=== PATIENT | female | born 1945 | race Caucasian/White ===

== ENCOUNTER 2019-02-20 11:15 | Inpatient (IN) ==
[2019-02-20] MEDS ORDERED: NORCO PO PRN (18:22)
[2019-02-20] MEDS ORDERED: CYCLOBENZAPRINE PO PRN (18:22)
[2019-02-20] MEDS ORDERED: Mag Hydrox/Al Hydrox/Simeth 30 ML UDC PO PRN (18:29)
[2019-02-20] MEDS ORDERED: Ondansetron ODT 4 MG TAB.RAPDIS SL PRN (18:29)
[2019-02-20] MEDS: Sennosides/Docusate Sodium TABLET PO SCH (22:10)
[2019-02-20] MEDS: (Cyclosporine [Restasis] 1 EACH) OP SCH (22:10)
[2019-02-20] MEDS: FluocinoNIDE 0.05% CRM 15 GM TUBE TP SCH (22:10)
[2019-02-20] MEDS: Melatonin 3 MG TABLET PO PRN (22:11)
[2019-02-20] MEDS: Acetaminophen 325 MG TABLET PO PRN (22:11)
[2019-02-21] MEDS: *HR* HYDROcodone/Acet 5/325 mg TABLET PO PRN ×3 (00:15→22:04)
[2019-02-21] MEDS: tiZANidine 4 MG TABLET PO PRN ×3 (00:15→22:04)
[2019-02-21 06:59] LABS: Basophils % 0.4 %; Eosinophils # 0.5 K/mcL (0.0-0.6); Hematocrit 30.9 % (35.3-44.9); Hemoglobin 10.8 g/dL (11.5-15.4); Immature Granulocytes % 0.3 % (0-4); Lymphocytes # 1.8 K/mcL (0.6-4.6); Mean Corpuscular Volume 91.4 fL (83.0-100.0); Mean Platelet Volume 9.1 fL (9.4-12.4); Monocytes # 0.7 K/mcL (0.0-1.3); Monocytes % 9.6 %; Neutrophils # 3.9 K/mcL (1.6-8.9); Platelet Count 312 K/mcL (140-400); Red Blood Count 3.38 M/mcL (3.82-4.97); Red Cell Distribution Width 12.6 % (11.5-14.5); Segmented Neutrophils % 56.7 %
[2019-02-21 07:12] LABS: Alanine Aminotransferase 10 Units/L (7-52); Albumin 3.4 g/dL (3.5-5.7); Albumin/Globulin Ratio 1.2 (1.1-2.2); Alkaline Phosphatase 41 Units/L (34-104); Aspartate Amino Transferase 10 Units/L (13-39); BUN/Creatinine Ratio 17 (6-26); Bilirubin,Total 0.5 mg/dL (0.3-1.0); Blood Urea Nitrogen 8 mg/dL (8-23); Calcium 8.6 mg/dL (8.6-10.3); Carbon Dioxide 31 mEq/L (23-29); Chloride 95 mEq/L (98-107); Globulin 2.9 g/dL (2.4-3.5); Glucose 129 mg/dL (70-105); Magnesium 1.8 mg/dL (1.6-2.6); Osmolality,Calculated 272 (280-300); Potassium 3.5 mEq/L (3.5-5.1); Sodium 131 mEq/L (136-145); Total Protein 6.3 g/dL (6.4-8.9); eGFR For African Americans > 60 (> 60); eGFR For Non-African Americans > 60 (> 60)
[2019-02-21] MEDS: Sennosides/Docusate Sodium TABLET PO SCH ×2 (08:25→22:01)
[2019-02-21] MEDS: Aspirin 81 MG TAB.CHEW PO SCH (08:25)
[2019-02-21] MEDS: FluocinoNIDE 0.05% CRM 15 GM TUBE TP SCH ×3 (08:26→22:00)
[2019-02-21] MEDS: (Cyclosporine [Restasis] 1 EACH) OP SCH ×2 (08:26→22:01)
[2019-02-21] MEDS: Fluticasone Propionate Nasal 50 MCG/SPRAY BOTTLE NS SCH ×2 (08:33→09:24)
[2019-02-21] MEDS ORDERED: Fluticasone Propionate Nasal 50 MCG/SPRAY BOTTLE NS SCH (09:00)
--- NOTE | 2019-02-21 09:54 | Internal Med History&Physical ---
Date of Encounter: 02/21/19 Time of Encounter: 09:47 Assessment and Plan (1) Anterior communicating artery aneurysm Current visit: No Status: Acute With the stroke. She has diplopia and mild left weakness. She is apparently doing better and is to be treated with a statin and daily aspirin. (2) Proximal humerus fracture Current visit: No Status: Acute Apparently, to be treated only with sling. Need modified OT/PT. Qualifiers: Encounter type: initial encounter Fracture type: closed Fracture morphology: unspecified fracture morphology Laterality: left Qualified Code(s): S42.202A - Unspecified fracture of upper end of left humerus, initial encounter for closed fracture (3) Vertigo Current visit: No Status: Acute Apparently chronic and treated with meclizine but worsened by stroke. (4) Hypertension Current visit: Yes Status: Acute Moderate elevation. Qualifiers: Hypertension type: essential hypertension Qualified Code(s): I10 - Essential (primary) hypertension (5) GERD (gastroesophageal reflux disease) Current visit: Yes Status: Acute Asymptomatic on current regimen. Qualifiers: Esophagitis presence: without esophagitis Qualified Code(s): K21.9 - Gastro-esophageal reflux disease without esophagitis (6) Mitral regurgitation Current visit: Yes Status: Acute Apparently stable with minimal clinical effect. 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 Qualifiers: Asthma severity: mild Asthma persistence: intermittent Asthma complication type: uncomplicated Qualified Code(s): J45.20 - Mild intermittent asthma, uncomplicated (8) Acute right MCA stroke Current visit: Yes Status: Acute Patient will be enrolled in therapies and supportive care, training and ADLs, etc. Visual changes will make training for safety important. Internal Medicine - H&P: HPI Admitted From: Hospital to Hospital Transfer History of present illness: Ms. Parrish is a 74 year old female who was in her usual state of health until February 15 when she developed worsening vertigo and fell, about 2 and half feet, at home. She denies loss of consciousness or syncope. She states that this was simply tripped. However, she had arm pain and was found to have a "hairline" fracture of her left upper extremity. She has some diplopia since the stroke, mild left weakness of upper and lower extremities. She denies speech changes or swallowing difficulty. She has had high blood pressure since hospitalized. She had incomplete emptying of her bladder but apparently this is doing better. Otherwise, no other complications. She is transferred here for therapies to increase strength and education about safety. From the inside records: She had a small right MCA stroke with left facial weakness noted. She was also found to have a 5 mm anterior communicating artery aneurysm. She has a minimally displaced greater tuberosity fracture of the left proximal humerus. They recommended only sling and swath. She is allergic to codeine, metoprolol, and propoxyphene which cause rash. Primary care provider i s Anne-Marie Ozuna and Natalee. Past medical history is significant for inhalant allergies, diffuse arthritis of the neck, upper back, and feet, especially. She has been on ibuprofen for same. She had rheumatic fever as a child with a valve leaking and some regurgitation. However, she is uncertain as to which valve. (Review of outside records state mitral regurgitation.) She has been treated for chronic cervical disc disease. She has had no surgery for same. She has hypertension which was controlled with Cozaar and hydrochlorothiazide. The latter was stopped at her hospitalization. She is borderline diabetic. She has GERD for which she takes a PPI. She has diverticulitis in the past. Surgeries have included cataract extraction with bilateral IOL and cholecystectomy, tubal ligation and joint replacement.a She is a nonsmoker and nondrinker. She is and lives alone but has a daughter who lives nearby. She lives in an apartment that is commonly for a disabled person. She is a former medical office secretary. Family history is noncontributory. Past Med Surg Social Fam HX - Past Medical History Source: patient Medical history: arthritis, asthma, hypertension, other Additional medical history: seasonal allergies Psychiatric history: no psych history - Past Surgical History Surgical History: cataract (Bilateral cataracts in 2006.), cholecystectomy Additional surgical history: bilateral knee replacement, bilateral lens implants. tubal - Social History Smoking Status: Never smoker Smokeless Tobacco Status: No Alcohol use: none Drug use: none - Family History Father Living Status: Hx Family Endocrine Disorder: Yes (DM) Internal Medicine - H&P: Meds Cozaar 100 mg PO DAILY 03/14/15 [History] [place] 5-325 Tablet 1 each PO Q6H PRN 03/14/15 [History] Prilosec 20 mg PO DAILY 03/14/15 [History] Salagen 5 mg PO TIDWM 03/14/15 [History] Singulair 10 mg PO HS 03/14/15 [History] Albuterol Sulfate [Albuterol Inhaler] 2 puff IH Q6H PRN 02/20/19 [History] Aspirin 81 mg PO DAILY 02/20/19 [History] Atorvastatin [Lipitor] 20 mg PO HS 02/20/19 [History] Betamethasone/Propylene Glyc [Diprolene 0.05% Ointment] 15 gm TP BID 02/20/19 [History] Cyclosporine [Restasis] 1 each OP Q12H 02/20/19 [History] Fluticasone Propionate Nasal [Flonase] 100 mcg NS DAILY 02/20/19 [History] Sennosides/Docusate Sodium [Senna-Docusate Sodium Tablet] 1 each PO BID 02/20/19 [History] Tizanidine HCl [Zanaflex] 2 mg PO Q6HR 02/20/19 [History] Allergy/AdvReac Type Severity Reaction Status Date / Time codeine Allergy Rash Verified 03/14/15 11:06 metoprolol Allergy Rash Verified 03/14/15 11:06 propoxyphene [From Darvon] Allergy Rash Verified 03/14/15 11:06 All Systems PM: She has chronic neck pain and has had "dry needling" on multiple occasions. This after steroid injections for 3 or 4 years. She says that she has no heart failure. She does have mild dyspnea on exertion which she attributes to her asthma and/or her heart murmur. She wears an upper plate denture. She states that her ear sometimes get congested from her allergies. She has sweat gland problems on her face but this is better with decreasing from [facility]. She has a chronic dry mouth for which she takes Salagen. Patient has no complaint of chest discomfort, dyspnea, orthopnea, breathing problems, palpitations, nausea or vomiting, constipation or diarrhea, other changes in bowel habits, heartburn, difficulty with urination, kidney problems or kidney stones, fevers chills or sweats, rash or itching, seizures, headache or lightheadedness, heat or cold intolerance, blood problems or anemia, or other new complaints, except as mentioned above. Review of systems is otherwise ne gative. - Constitutional Vitals: Temp Pulse Resp BP Pulse Ox 98.0 F 66 16 167/75 97 02/21/19 07:48 02/21/19 07:48 02/21/19 07:48 02/21/19 07:48 02/21/19 07:48 Exam: Examination: (Except as mentioned above): General: In no apparent distress, alert and oriented 3. Head: Atraumatic and normocephalic. Eyes: Extraocular muscles are intact, pupils equal round and reactive to light and accommodation. Sclerae anicteric. Ears: External ears are normal to inspection and hearing is grossly normal. Nose: Patent without lesion noted. Mouth: No intraoral lesions seen. Upper plate dentures in place. Neck: Supple with trachea midline. There is no thyromegaly or adenopathy and carotids are 2+ without bruit heard. Respiratory: No use of accessory muscles. Lungs are clear throughout. Normal airflow. Cardiovascular: Regular rate and rhythm a grade 1 to 2/6 systolic murmur heard at the left ventricular outflow tract, only. Examination is somewhat limited by her left arm and sling, large breasts. Abdomen: Bowel sounds are normal. No hepatosplenomegaly masses or tenderness. Morbidly obese and therefore difficult to palpate deeply.Patient is examined upright in chair and this also limits exam. Extremities: No cyanosis clubbing or edema. Neurological: A and O 3. Cranial nerves II through XII are intact, with the exception of minimal left facial droop. She also has mild left gaze divergence. She has 4+ out of 5 weakness of the left upper and lower extremities. Gait was not assessed. Skin: Warm and non-diaphoretic with no lesions noted. Breasts, pelvic and rectal: Not examined. Internal Med - H&P Results - Labs CBC & Chem 7: 02/21/19 06:35 02/21/19 06:35 Labs: Short CBC 02/21/19 Range/Units 06:35 WBC 7.0 (4.3-11.1) K/mcL Hgb 10.8 L D (11.5-15.4) g/dL Hct 30.9 L (35.3-44.9) % Plt Count 312 (140-400) K/mcL Neutrophils # 3.9 (1.6-8.9) K/mcL BMP 02/21/19 06:35 Sodium 131 L Potassium 3.5 Chloride 95 L Carbon Dioxide 31 H BUN 8 Creatinine 0.48 L Glucose 129 H Calcium 8.6 Liver Function 02/21/19 Range/Units 06:35 Total Bilirubin 0.5 (0.3-1.0) mg/dL AST 10 L (13-39) Units/L ALT 10 (7-52) Units/L Alkaline Phosphatase 41 (34-104) Units/L Albumin 3.4 L (3.5-5.7) g/dL
[2019-02-21] MEDS: Melatonin 3 MG TABLET PO PRN (22:02)
[2019-02-22] MEDS ORDERED: *HR* Enoxaparin 40 MG/0.4 ML SYRINGE SQ SCH (06:00)
[2019-02-22] MEDS: Sennosides/Docusate Sodium TABLET PO SCH ×2 (08:27→21:21)
[2019-02-22] MEDS: Aspirin 81 MG TAB.CHEW PO SCH (08:28)
[2019-02-22] MEDS: Fluticasone Propionate Nasal 50 MCG/SPRAY BOTTLE NS SCH (08:29)
[2019-02-22] MEDS: FluocinoNIDE 0.05% CRM 15 GM TUBE TP SCH ×3 (08:30→21:52)
[2019-02-22] MEDS: (Cyclosporine [Restasis] 1 EACH) OP SCH ×2 (08:31→21:22)
[2019-02-22] MEDS: tiZANidine 4 MG TABLET PO PRN ×2 (08:47→23:14)
--- NOTE | 2019-02-22 12:41 | Internal Med Progress Note ---
Date of Encounter: 02/22/19 Time of Encounter: 12:40 - Subjective Interval history: 55 Assessment and Plan (1) Anterior communicating artery aneurysm Current visit: No Status: Acute With the stroke. She has diplopia and mild left weakness. She is apparently doing better and is to be treated with a statin and daily aspirin. (2) Proximal humerus fracture Current visit: No Status: Acute Apparently, to be treated only with sling. Need modified OT/PT. Qualifiers: Encounter type: initial encounter Fracture type: closed Fracture morphology: unspecified fracture morphology Laterality: left Qualified Code(s): S42.202A - Unspecified fracture of upper end of left humerus, initial encounter for closed fracture (3) Vertigo Current visit: No Status: Acute Apparently chronic and treated with meclizine but worsened by stroke. (4) Hypertension Current visit: Yes Status: Acute Moderate elevation. Qualifiers: Hypertension type: essential hypertension Qualified Code(s): I10 - Essential (primary) hypertension (5) GERD (gastroesophageal reflux disease) Current visit: Yes Status: Acute Asymptomatic on current regimen. Qualifiers: Esophagitis presence: without esophagitis Qualified Code(s): K21.9 - Gastro-esophageal reflux disease without esophagitis (6) Mitral regurgitation Current visit: Yes Status: Acute Apparently stable with minimal clinical effect. 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 Qualifiers: Asthma severity: mild Asthma persistence: intermittent Asthma complication type: uncomplicated Qualified Code(s): J45.20 - Mild intermittent asthma, uncomplicated (8) Acute right MCA stroke Current visit: Yes Status: Acute Patient will be enrolled in therapies and supportive care, training and ADLs, etc. Visual changes will make training for safety important. Internal Medicine - H&P: HPI Admitted From: Hospital to Hospital Transfer History of present illness: Ms. Parrish is a 74 year old female who was in her usual state of health until February 15 when she developed worsening vertigo and fell, about 2 and half feet, at home. She denies loss of consciousness or syncope. She states that this was simply tripped. However, she had arm pain and was found to have a "hairline" fracture of her left upper extremity. She has some diplopia since the stroke, mild left weakness of upper and lower extremities. She denies speech changes or swallowing difficulty. She has had high blood pressure since hospitalized. She had incomplete emptying of her bladder but apparently this is doing better. Otherwise, no other complications. She is transferred here for therapies to increase strength and education about safety. From the inside records: She had a small right MCA stroke with left facial weakness noted. She was also found to have a 5 mm anterior communicating artery aneurysm. She has a minimally displaced greater tuberosity fracture of the left proximal humerus. They recommended only sling and swath. Today she reports hx of contact dermatitis and irritation of left axilla and r hip from undergarments. Will treat with topical cream Exam: General: In no apparent distress, alert and oriented 3. Head: Atraumatic and normocephalic. Eyes: Extraocular muscles are intact, pupils equal round and reactive to light and accommodation. Sclerae anicteric. Ears: External ears are normal to inspection and hearing is grossly normal. Nose: Patent without lesion noted. Mouth: No intraoral lesions seen. Upper plate dentures in place. Neck: Supple with trachea midline. There is no thyromegaly or adenopathy and carotids are 2+ without bruit heard. Respiratory: No use of accessory muscles. Lungs are clear throughout. Normal airflow. Cardiovascular: Regular rate and rhythm a grade 1 to 2/6 systolic murmur heard at the left ventricular outflow tract, only. Examination is somewhat limited by her left arm and sling, large breasts. Abdomen: Bowel sounds are normal. No hepatosplenomegaly masses or tenderness. Morbidly obese and therefore difficult to palpate deeply.Patient is examined upright in chair and this also limits exam. Extremities: No cyanosis clubbing or edema. Neurological: A and O 3. Cranial nerves II through XII are intact, with the exception of minimal left facial droop. She also has mild left gaze divergence. She has 4+ out of 5 weakness of the left upper and lower extremities. Gait was not assessed. Skin: Warm and non-diaphoretic with no lesions noted. - Constitutional Vitals: Temp Pulse Resp BP Pulse Ox 97.7 F 69 16 176/94 92 02/22/19 07:00 02/22/19 07:00 02/22/19 07:00 02/22/19 07:00 02/22/19 07:00 Internal Medicine: Result - Labs CBC & Chem 7: 02/21/19 06:35 02/21/19 06:35 Consult Discharge Plan - Plan Referrals: Mariaa Ozuna MD [Primary Care Provider] -
[2019-02-22] MEDS: *HR* HYDROcodone/Acet 5/325 mg TABLET PO PRN ×2 (13:07→23:13)
[2019-02-22] MEDS: Acetaminophen 325 MG TABLET PO PRN (19:50)
[2019-02-22] MEDS ORDERED: hydrALAZINE 25 MG TABLET PO PRN (23:00)
[2019-02-23] MEDS: Hydrocortisone 1% OINT 28 GM TUBE TP SCH ×2 (08:37→21:43)
[2019-02-23] MEDS: Sennosides/Docusate Sodium TABLET PO SCH ×2 (08:37→20:48)
[2019-02-23] MEDS: Aspirin 81 MG TAB.CHEW PO SCH (08:37)
[2019-02-23] MEDS: tiZANidine 4 MG TABLET PO PRN ×2 (08:41→22:57)
[2019-02-23] MEDS: Acetaminophen 325 MG TABLET PO PRN ×2 (08:41→21:41)
[2019-02-23] MEDS: Fluticasone Propionate Nasal 50 MCG/SPRAY BOTTLE NS SCH (08:42)
[2019-02-23] MEDS: FluocinoNIDE 0.05% CRM 15 GM TUBE TP SCH ×2 (08:44→20:48)
[2019-02-23] MEDS: (Cyclosporine [Restasis] 1 EACH) OP SCH ×2 (08:45→20:49)
[2019-02-23] MEDS: *HR* HYDROcodone/Acet 5/325 mg TABLET PO PRN ×2 (14:14→22:57)
--- NOTE | 2019-02-23 14:31 | Internal Med Progress Note ---
Date of Encounter: 02/23/19 Time of Encounter: 15:40 - Subjective Interval history: 55 Assessment and Plan (1) Anterior communicating artery aneurysm Current visit: No Status: Acute With the stroke. She has diplopia and mild left weakness. She is apparently doing better and is to be treated with a statin and daily aspirin. (2) Proximal humerus fracture Current visit: No Status: Acute Apparently, to be treated only with sling. Need modified OT/PT. Qualifiers: Encounter type: initial encounter Fracture type: closed Fracture morphology: unspecified fracture morphology Laterality: left Qualified Code(s): S42.202A - Unspecified fracture of upper end of left humerus, initial encounter for closed fracture (3) Vertigo Current visit: No Status: Acute Apparently chronic and treated with meclizine but worsened by stroke. (4) Hypertension Current visit: Yes Status: Acute Moderate elevation. Qualifiers: Hypertension type: essential hypertension Qualified Code(s): I10 - Essential (primary) hypertension (5) GERD (gastroesophageal reflux disease) Current visit: Yes Status: Acute Asymptomatic on current regimen. Qualifiers: Esophagitis presence: without esophagitis Qualified Code(s): K21.9 - Gastro-esophageal reflux disease without esophagitis (6) Mitral regurgitation Current visit: Yes Status: Acute Apparently stable with minimal clinical effect. 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 Qualifiers: Asthma severity: mild Asthma persistence: intermittent Asthma complication type: uncomplicated Qualified Code(s): J45.20 - Mild intermittent asthma, uncomplicated (8) Acute right MCA stroke Current visit: Yes Status: Acute Patient will be enrolled in therapies and supportive care, training and ADLs, etc. Visual changes will make training for safety important. Internal Medicine - H&P: HPI Admitted From: Hospital to Hospital Transfer History of present illness: Ms. Parrish is a 74 year old female who was in her usual state of health until February 15 when she developed worsening vertigo and fell, about 2 and half feet, at home. She denies loss of consciousness or syncope. She states that this was simply tripped. However, she had arm pain and was found to have a "hairline" fracture of her left upper extremity. She has some diplopia since the stroke, mild left weakness of upper and lower extremities. She denies speech changes or swallowing difficulty. She has had high blood pressure since hospitalized. She had incomplete emptying of her bladder but apparently this is doing better. Otherwise, no other complications. She is transferred here for therapies to increase strength and education about safety. From the inside records: She had a small right MCA stroke with left facial weakness noted. She was also found to have a 5 mm anterior communicating artery aneurysm. She has a minimally displaced greater tuberosity fracture of the left proximal humerus. They recommended only sling and swath. REcent she reports hx of contact dermatitis and irritation of left axilla and r hip from undergarments. Will treat with topical cream. also some dysuria Exam: General: In no apparent distress, alert and oriented 3. Head: Atraumatic and normocephalic. Eyes: Extraocular muscles are intact, pupils equal round and reactive to light and accommodation. Sclerae anicteric. Ears: External ears are normal to inspection and hearing is grossly normal. Nose: Patent without lesion noted. Mouth: No intraoral lesions seen. Upper plate dentures in place. Neck: Supple with trachea midline. There is no thyromegaly or adenopathy and carotids are 2+ without bruit heard. Respiratory: No use of accessory muscles. Lungs are clear throughout. Normal airflow. Cardiovascular: Regular rate and rhythm a grade 1 to 2/6 systolic murmur heard at the left ventricular outflow tract, only. Examination is somewhat limited by her left arm and sling, large breasts. Abdomen: Bowel sounds are normal. No hepatosplenomegaly masses or tenderness. Morbidly obese and therefore difficult to palpate deeply.Patient is examined upright in chair and this also limits exam. Extremities: No cyanosis clubbing or edema. Neurological: A and O 3. Cranial nerves II through XII are intact, with the exception of minimal left facial droop. She also has mild left gaze divergence. She has 4+ out of 5 weakness of the left upper and lower extremities. Gait was not assessed. Skin: Warm and non-diaphoretic with no lesions noted. - Constitutional Vitals: Temp Pulse Resp BP Pulse Ox 98.4 F 68 16 149/75 93 02/23/19 07:01 02/23/19 07:01 02/23/19 07:01 02/23/19 07:02/23/19 07:01 Internal Medicine: Result - Labs CBC & Chem 7: 02/21/19 06:35 02/21/19 06:35 Consult Discharge Plan - Plan Referrals: Mariaa Ozuna MD [Primary Care Provider] -
[2019-02-23 19:05] LABS: Bilirubin,Urine Negative (Negative); Blood,Urine Negative (Negative); Clarity,Urine Slightly Cloudy (Clear); Glucose,Urine (UA) Normal (Normal); Ketones,Urine Negative (Negative); Leukocyte Esterase,Urine Moderate (Negative); Nitrite,Urine Negative (Negative); Protein,Urine Negative (Neg-Trace); Urobilinogen,Urine Normal (Normal)
[2019-02-23 19:16] LABS: Color,Urine Yellow (Yellow)
[2019-02-23 19:28] LABS: Bacteria,Urine Few per hpf (None-Few); Squamous Epithelial Cell,Urine Few per lpf (None-Few)
[2019-02-24 06:11] LABS: Basophils % 0.6 %; Eosinophils # 0.5 K/mcL (0.0-0.6); Eosinophils % 6.5 %; Hematocrit 32.1 % (35.3-44.9); Immature Granulocytes % 0.4 % (0-4); Lymphocytes # 1.7 K/mcL (0.6-4.6); Lymphocytes % 24.5 %; Mean Corpuscular HGB Conc 34.3 g/dL (31.6-35.5); Mean Corpuscular Hemoglobin 31.1 pg (28.0-33.3); Mean Corpuscular Volume 90.7 fL (83.0-100.0); Monocytes # 0.6 K/mcL (0.0-1.3); Monocytes % 8.4 %; Neutrophils # 4.2 K/mcL (1.6-8.9); Platelet Count 378 K/mcL (140-400); Red Blood Count 3.54 M/mcL (3.82-4.97); Red Cell Distribution Width 12.4 % (11.5-14.5); Segmented Neutrophils % 59.6 %; White Blood Count 7.1 K/mcL (4.3-11.1)
[2019-02-24 06:28] LABS: Alanine Aminotransferase 15 Units/L (7-52); Albumin 3.4 g/dL (3.5-5.7); Albumin/Globulin Ratio 1.1 (1.1-2.2); Alkaline Phosphatase 51 Units/L (34-104); Aspartate Amino Transferase 14 Units/L (13-39); BUN/Creatinine Ratio 17 (6-26); Bilirubin,Total 0.5 mg/dL (0.3-1.0); Blood Urea Nitrogen 8 mg/dL (8-23); Calcium 8.7 mg/dL (8.6-10.3); Carbon Dioxide 28 mEq/L (23-29); Chloride 96 mEq/L (98-107); Glucose 121 mg/dL (70-105); Magnesium 1.8 mg/dL (1.6-2.6); Osmolality,Calculated 270 (280-300); Potassium 3.4 mEq/L (3.5-5.1); Sodium 130 mEq/L (136-145); Total Protein 6.4 g/dL (6.4-8.9); eGFR For African Americans > 60 (> 60); eGFR For Non-African Americans > 60 (> 60)
[2019-02-24] MEDS: *HR* HYDROcodone/Acet 5/325 mg TABLET PO PRN ×2 (09:17→17:23)
[2019-02-24] MEDS: Aspirin 81 MG TAB.CHEW PO SCH (09:17)
[2019-02-24] MEDS: tiZANidine 4 MG TABLET PO PRN ×2 (09:17→17:22)
[2019-02-24] MEDS: Fluticasone Propionate Nasal 50 MCG/SPRAY BOTTLE NS SCH (09:18)
[2019-02-24] MEDS: FluocinoNIDE 0.05% CRM 15 GM TUBE TP SCH ×2 (09:18→21:08)
[2019-02-24] MEDS: Sennosides/Docusate Sodium TABLET PO SCH ×2 (09:20→21:09)
[2019-02-24] MEDS: Hydrocortisone 1% OINT 28 GM TUBE TP SCH ×2 (09:30→21:08)
[2019-02-24] MEDS: (Cyclosporine [Restasis] 1 EACH) OP SCH ×2 (09:30→21:09)
--- NOTE | 2019-02-24 12:00 | Event Note ---
Date of Encounter: 02/24/19 Time of Encounter: 12:00 Patient is unavailable as she has left because of a family .
[2019-02-24] MEDS: Melatonin 3 MG TABLET PO PRN (21:08)
[2019-02-24] MEDS: Acetaminophen 325 MG TABLET PO PRN (21:08)
[2019-02-25] MEDS: Aspirin 81 MG TAB.CHEW PO SCH (08:38)
[2019-02-25] MEDS: FluocinoNIDE 0.05% CRM 15 GM TUBE TP SCH ×2 (08:38→21:25)
[2019-02-25] MEDS: Hydrocortisone 1% OINT 28 GM TUBE TP SCH ×2 (08:40→21:25)
[2019-02-25] MEDS: (Cyclosporine [Restasis] 1 EACH) OP SCH ×2 (08:42→21:26)
[2019-02-25] MEDS: Fluticasone Propionate Nasal 50 MCG/SPRAY BOTTLE NS SCH (08:42)
[2019-02-25] MEDS: Sennosides/Docusate Sodium TABLET PO SCH ×2 (08:42→21:26)
[2019-02-25] MEDS: Acetaminophen 325 MG TABLET PO PRN (10:38)
--- NOTE | 2019-02-25 13:00 | Internal Med Progress Note ---
Date of Encounter: 02/25/19 Time of Encounter: 12:57 - Assessment and plan (1) Acute right MCA stroke Current Visit: Yes Status: Acute Assessment and plan: Continue PT, OT and ST. Will follow progress. Follow up with neurology as scheduled. No new neurological deficits at this time. (2) Anterior communicating artery aneurysm Current Visit: No Status: Acute (3) Left humeral fracture Current Visit: Yes Status: Acute Assessment and plan: Pain controlled. Continue sling. Follow up with ortho as scheduled. Qualifiers: Encounter type: sequela Humerus Location: proximal Fracture type: closed Fracture morphology: unspecified fracture morphology Qualified Code(s): S42.202S - Unspecified fracture of upper end of left humerus, sequela (4) Hypertension Current Visit: Yes Status: Chronic Assessment and plan: Controlled with current medication. Monitor blood pressure. Qualifiers: Hypertension type: essential hypertension Qualified Code(s): I10 - Essential (primary) hypertension (5) Mitral regurgitation Current Visit: Yes Status: Chronic Assessment and plan: Slight murmur. Stable. Denies shortness of breath. 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 Currently sitting in wheelchair. Left arm in sling. States pain is been controlled with current medication. Maintaining appetite and hydration. Denies fever, chills, nausea vomiting or diarrhea. Denies shortness of breath or chest pain. No new neurological deficits. - Constitutional Vitals: Temp Pulse Resp BP Pulse Ox 97.9 F 75 16 159/80 97 02/25/19 07:42 02/25/19 07:42 02/25/19 07:42 02/25/19 07:42 02/25/19 07:42 General appearance: Present: cooperative, A&O X 3, pleasant, no acute distress, obese, answers questions appropriately - Head Head exam: Present: atraumatic, normocephalic - Eye Eye exam: Present: PERRL, conjuntiva pink, sclera anicteric Pupils: Present: PERRL - Neck Neck exam general surgery: Present: supple, trachea midline. Absent: lymp hadenopathy - Respiratory Respiratory exam: Present: CTAB. Absent: accessory muscle use, rales, rhonchi, wheezes - Cardiovascular Cardiovascular exam: Present: RRR, systolic murmur. Absent: diastolic murmur, gallop, rubs Additional comments: Systolic murmur 1\6. - GI/Abdominal GI/Abdominal exam: Present: normal bowel sounds, soft, no peritoneal signs. Absent: distended, tenderness - Extremities Exam Extremities exam: Present: warm, radial pulses palpable and symmetrical. Absent: calf tenderness, cyanotic, pedal edema Additional comments: Left arm in sling strength 4\5 left upper and left lower extremity. - Neurological Exam Neurological exam: Present: CN II-XII intact, oriented X3, no focal deficits. Absent: pronater drift, facial droop, speech deficit - Skin Skin exam: Present: dry, intact Internal Medicine: Result - Labs CBC & Chem 7: 02/24/19 05:45 02/24/19 05:45 Consult Discharge Plan - Plan Referrals: Mariaa Ozuna MD [Primary Care Provider] -
[2019-02-25] MEDS: *HR* HYDROcodone/Acet 5/325 mg TABLET PO PRN ×2 (13:11→21:26)
[2019-02-25] MEDS: Melatonin 3 MG TABLET PO PRN (21:25)
[2019-02-25] MEDS: tiZANidine 4 MG TABLET PO PRN (22:52)
[2019-02-26] MEDS: Aspirin 81 MG TAB.CHEW PO SCH (09:00)
[2019-02-26] MEDS: Sennosides/Docusate Sodium TABLET PO SCH ×2 (09:01→19:40)
[2019-02-26] MEDS: Fluticasone Propionate Nasal 50 MCG/SPRAY BOTTLE NS SCH (09:01)
[2019-02-26] MEDS: (Cyclosporine [Restasis] 1 EACH) OP SCH ×2 (09:01→20:53)
[2019-02-26] MEDS: FluocinoNIDE 0.05% CRM 15 GM TUBE TP SCH ×2 (09:01→19:40)
[2019-02-26] MEDS: Hydrocortisone 1% OINT 28 GM TUBE TP SCH ×2 (09:01→20:53)
--- NOTE | 2019-02-26 12:12 | Internal Med Progress Note ---
Date of Encounter: 02/26/19 Time of Encounter: 12:09 - Assessment and plan (1) Acute right MCA stroke Current Visit: Yes Status: Acute Assessment and plan: Patient continues with difficulty focusing on objects in her peripheral fox. Slight left hemiparesis with lower left extremity is 4+/5. Exam limited due to left arm in sling. He should states that her vision has improved slightly over the past several days. We will continue with current medications. We will maintain systolic blood pressure less than 160 has a goal. Patient to continue with therapy (2) Hypertension Current Visit: Yes Status: Chronic Assessment and plan: Vital signs have been stable. We will maintain systolic blood pressure less than 160 as a goal. We will continue with current medications Qualifiers: Hypertension type: essential hypertension Qualified Code(s): I10 - Essential (primary) hypertension (3) GERD (gastroesophageal reflux disease) Current Visit: Yes Status: Acute Assessment and plan: No acute issues noted. Patient without complaints. We will continue with current medications Qualifiers: Esophagitis presence: without esophagitis Qualified Code(s): K21.9 - Gastro-esophageal reflux disease without esophagitis (4) Left humeral fracture Current Visit: Yes Status: Acute Assessment and plan: No acute issues. Left arm remains in sling. Pain is normal managed with current medications. Distal CV checks normal. We will continue with current plan of care Qualifiers: Encounter type: sequela Humerus Location: proximal Fracture type: closed Fracture morphology: unspecified fracture morphology Qualified Code(s): S42.202S - Unspecified fracture of upper end of left humerus, sequela (5) Anterior communicating artery aneurysm Current Visit: No Status: Acute Assessment and plan: Patient with incidental finding of ACOM aneurysm area. Evaluated by neurosurgery at previous hospital with conservative treatment recommended. Patient without any complaints of headache. We will maintain systolic blood pressure less than 160. Patient with follow-up scheduled - Time Spent With Patient less than 15 minutes - Subjective Interval history: Patient appears relaxed and currently denies any issues. Patient states she co ntinues to have moderate pain to her left upper arm during range of motion, but states that it is tolerable. Patient continues with sling in place with left arm having nonweightbearing. Patient also states she continues to have some visual blurriness and difficulty with focusing. States that therapy has been going well for her - Constitutional Vitals: Temp Pulse Resp BP Pulse Ox 98.7 F 71 18 148/80 93 02/25/19 23:58 02/25/19 23:58 02/25/19 23:58 02/25/19 23:58 02/25/19 23:58 General appearance: Present: cooperative, A&O X 3, pleasant, no acute distress, obese, answers questions appropriately - Head Head exam: Present: atraumatic, normocephalic - Eye Eye exam: Present: PERRL, conjuntiva pink, sclera anicteric Pupils: Present: PERRL - Neck Neck exam general surgery: Present: supple, trachea midline. Absent: lymphadenopathy - Respiratory Respiratory exam: Present: CTAB. Absent: accessory muscle use, rales, rhonchi, wheezes - Cardiovascular Cardiovascular exam: Present: RRR, +S1, +S2. Absent: diastolic murmur, gallop, rubs, systolic murmur - GI/Abdominal GI/Abdominal exam: Present: normal bowel sounds, soft, no peritoneal signs. Absent: distended, tenderness - Extremities Exam Extremities exam: Present: warm, radial pulses palpable and symmetrical. Absent: calf tenderness, cyanotic, pedal edema Additional comments: Left upper extremity in sling with distal CV checks normal. - Neurological Exam Neurological exam: Present: oriented X3. Absent: pronater drift, facial droop, speech deficit Additional comments: Patient continues with complaints of blurriness when tending to focus on periphe ral on checks. Normal accommodation noted. Normal EOM. Slight weakness to left lower extremity at 4+/5. Unable to examine left upper extremity due to fracture and remaining and a sling. Left hand grasp or 5/5. Right extremities at 5/5 muscle strength. - Skin Skin exam: Present: dry, intact Internal Medicine: Result - Labs CBC & Chem 7: 02/24/19 05:45 02/24/19 05:45 Consult Discharge Plan - Plan Referrals: Mariaa Ozuna MD [Primary Care Provider] -
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
[2019-02-26] MEDS: *HR* HYDROcodone/Acet 5/325 mg TABLET PO PRN ×2 (14:53→22:34)
[2019-02-26] MEDS: tiZANidine 4 MG TABLET PO PRN (20:53)
[2019-02-26] MEDS: Melatonin 3 MG TABLET PO PRN (20:54)
[2019-02-27] MEDS: tiZANidine 4 MG TABLET PO PRN ×2 (03:02→20:43)
[2019-02-27] MEDS: Acetaminophen 325 MG TABLET PO PRN ×2 (03:02→20:44)
[2019-02-27] MEDS: Sennosides/Docusate Sodium TABLET PO SCH ×2 (07:51→19:57)
[2019-02-27] MEDS: Hydrocortisone 1% OINT 28 GM TUBE TP SCH ×2 (08:10→20:42)
[2019-02-27] MEDS: Fluticasone Propionate Nasal 50 MCG/SPRAY BOTTLE NS SCH (08:10)
[2019-02-27] MEDS: Aspirin 81 MG TAB.CHEW PO SCH (08:10)
[2019-02-27] MEDS: (Cyclosporine [Restasis] 1 EACH) OP SCH ×2 (08:10→20:43)
[2019-02-27] MEDS: FluocinoNIDE 0.05% CRM 15 GM TUBE TP SCH ×2 (08:10→19:57)
--- NOTE | 2019-02-27 12:13 | Internal Med Progress Note ---
Date of Encounter: 02/27/19 Time of Encounter: 12:11 - Assessment and plan (1) Acute right MCA stroke Current Visit: Yes Status: Acute Assessment and plan: Patient continues with difficulty focusing on objects in her peripheral fox. Slight left hemiparesis with lower left extremity is 4+/5. Exam limited due to left arm in sling. He should states that her vision has improved slightly over the past several days. We will continue with current medications. We will maintain systolic blood pressure less than 160 has a goal. Patient to continue with therapy (2) Hypertension Current Visit: Yes Status: Chronic Assessment and plan: Vital signs have been stable. We will maintain systolic blood pressure less than 160 as a goal. We will continue with current medications Qualifiers: Hypertension type: essential hypertension Qualified Code(s): I10 - Essential (primary) hypertension (3) GERD (gastroesophageal reflux disease) Current Visit: Yes Status: Acute Assessment and plan: No acute issues noted. Patient without complaints. We will continue with current medications Qualifiers: Esophagitis presence: without esophagitis Qualified Code(s): K21.9 - Gastro-esophageal reflux disease without esophagitis (4) Left humeral fracture Current Visit: Yes Status: Acute Assessment and plan: No acute issues. Left arm remains in sling. Pain is normal managed with current medications. Distal CV checks normal. We will continue with current plan of care Qualifiers: Encounter type: sequela Humerus Location: proximal Fracture type: closed Fracture morphology: unspecified fracture morphology Qualified Code(s): S42.202S - Unspecified fracture of upper end of left humerus, sequela (5) Anterior communicating artery aneurysm Current Visit: No Status: Acute Assessment and plan: Patient with incidental finding of ACOM aneurysm area. Evaluated by neurosurgery at previous hospital with conservative treatment recommended. Patient without any complaints of headache. We will maintain systolic blood pressure less than 160. Patient with follow-up scheduled - Time Spent With Patient less than 15 minutes - Subjective Interval history: Patient appears relaxed and currently denies any issues. Patient states she co ntinues to have moderate pain to her left upper arm during range of motion, but states that it is tolerable. Patient continues with sling in place with left arm having nonweightbearing. Patient also states she continues to have some visual blurriness and difficulty with focusing. States that therapy has been going well for her. Patient states that she was able to ambulate with assistance during therapy at approximately 75 feet - Constitutional Vitals: Temp Pulse Resp BP Pulse Ox 98 F 68 18 106/73 92 02/27/19 07:18 02/27/19 07:18 02/27/19 07:18 02/27/19 07:18 02/27/19 07:18 General appearance: Present: cooperative, A&O X 3, pleasant, no acute distress, obese, answers questions appropriately - Head Head exam: Present: atraumatic, normocephalic - Eye Eye exam: Present: PERRL, conjuntiva pink, sclera anicteric Pupils: Present: PERRL Additional comments: Patient noted to have continued blurriness, mostly to her right eye. Difficulty with focusing on objects for approximately 2-3 feet. Normal accommodation and EOM. Complaints of diplopia - Neck Neck exam general surgery: Present: supple, trachea midline. Absent: lymphad enopathy - Respiratory Respiratory exam: Present: decreased breath sounds, CTAB. Absent: accessory muscle use, rales, rhonchi, wheezes - Cardiovascular Cardiovascular exam: Present: RRR, +S1, +S2. Absent: diastolic murmur, gallop, rubs, systolic murmur - GI/Abdominal GI/Abdominal exam: Present: normal bowel sounds, soft, no peritoneal signs. Absent: distended, tenderness - Extremities Exam Extremities exam: Present: normal capillary refill, normal inspection, warm, radial pulses palpable and symmetrical. Absent: calf tenderness, cyanotic, pedal edema Additional comments: Left arm remains in a sling with complaints of tenderness to upper arm during range of motion of shoulder. Distal CV checks normal - Neurological Exam Neurological exam: Present: oriented X3. Absent: pronater drift, facial droop, speech deficit Additional comments: Patient continues with complaints of diplopia and difficulty with focusing. Normal EOM and accommodation. Slight left hemiparesis noted with lower left extremity had 4+/5. Exam limited to left upper extremity due to fracture and placement of sling. Heart extremities of 5/5 muscle strength. - Skin Skin exam: Present: dry, intact Internal Medicine: Result - Labs CBC & Chem 7: 02/24/19 05:45 02/24/19 05:45 Consult Discharge Plan - Plan Referrals: Mariaa Ozuna MD [Primary Care Provider] -
[2019-02-27 12:17] LABS: Bilirubin,Urine Negative (Negative); Blood,Urine Negative (Negative); Clarity,Urine Clear (Clear); Color,Urine Yellow (Yellow); Glucose,Urine (UA) Normal (Normal); Ketones,Urine Negative (Negative); Leukocyte Esterase,Urine Small (Negative); Nitrite,Urine Negative (Negative); Protein,Urine Negative (Neg-Trace); Urobilinogen,Urine Normal (Normal)
[2019-02-27 12:30] LABS: Bacteria,Urine Few per hpf (None-Few); Squamous Epithelial Cell,Urine Few per lpf (None-Few)
[2019-02-27] MEDS: *HR* HYDROcodone/Acet 5/325 mg TABLET PO PRN ×2 (14:45→22:39)
[2019-02-27] MEDS: Melatonin 3 MG TABLET PO PRN (20:44)
[2019-02-28] MEDS: Aspirin 81 MG TAB.CHEW PO SCH (08:00)
[2019-02-28] MEDS: tiZANidine 4 MG TABLET PO PRN ×2 (08:01→15:18)
[2019-02-28] MEDS: Sennosides/Docusate Sodium TABLET PO SCH ×2 (08:02→21:06)
[2019-02-28] MEDS: Fluticasone Propionate Nasal 50 MCG/SPRAY BOTTLE NS SCH (10:37)
[2019-02-28] MEDS: (Cyclosporine [Restasis] 1 EACH) OP SCH ×2 (10:37→21:08)
[2019-02-28] MEDS: Hydrocortisone 1% OINT 28 GM TUBE TP SCH ×2 (10:38→21:08)
[2019-02-28] MEDS: FluocinoNIDE 0.05% CRM 15 GM TUBE TP SCH ×2 (10:38→21:09)
--- NOTE | 2019-02-28 12:04 | Internal Med Progress Note ---
Date of Encounter: 02/28/19 Time of Encounter: 12:02 - Assessment and plan (1) Acute right MCA stroke Current Visit: Yes Status: Acute Assessment and plan: Continue PT, OT and ST. Will follow progress. Follow up with neurology as scheduled. No new neurological deficits at this time. (2) Anterior communicating artery aneurysm Current Visit: No Status: Acute (3) Left humeral fracture Current Visit: Yes Status: Acute Assessment and plan: Pain controlled. Continue sling. Follow up with ortho as scheduled. Qualifiers: Encounter type: sequela Humerus Location: proximal Fracture type: closed Fracture morphology: unspecified fracture morphology Qualified Code(s): S42.202S - Unspecified fracture of upper end of left humerus, sequela (4) Hypertension Current Visit: Yes Status: Chronic Assessment and plan: Controlled with current medication. Monitor blood pressure. Qualifiers: Hypertension type: essential hypertension Qualified Code(s): I10 - Essential (primary) hypertension (5) Mitral regurgitation Current Visit: Yes Status: Chronic Assessment and plan: Slight murmur. Stable. Denies shortness of breath. 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 Currently lying in bed. Left arm in sling. States pain is been controlled with current medication. Maintaining appetite and hydration. Denies fever, chills, nausea vomiting or diarrhea. Denies shortness of breath or chest pain. No new neurological deficits. - Constitutional Vitals: Temp Pulse Resp BP Pulse Ox 98.1 F 71 16 152/81 93 02/28/19 08:00 02/28/19 08:00 02/28/19 08:00 02/28/19 08:00 02/28/19 08:00 General appearance: Present: cooperative, A&O X 3, pleasant, no acute distress, obese, answers questions appropriately - Head Head exam: Present: atraumatic, normocephalic - Eye Eye exam: Present: PERRL, conjuntiva pink, sclera anicteric Pupils: Present: PERRL - Neck Neck exam general surgery: Present: supple, trachea midline. Absent: lymphadenopathy - Respiratory Respiratory exam: Present: CTAB. Absent: accessory muscle use, rales, rhonchi, wheezes - Cardiovascular Cardiovascular exam: Present: +S1, +S2. Absent: diastolic murmur, gallop, rubs, systolic murmur Additional comments: slight murmur /6 - GI/Abdominal GI/Abdominal exam: Present: normal bowel sounds, soft, no peritoneal signs. Absent: distended, tenderness - Extremities Exam Extremities exam: Present: warm, radial pulses palpable and symmetrical. Absent: calf tenderness, cyanotic, pedal edema Additional comments: left arm in sling - Neurological Exam Neurological exam: Present: CN II-XII intact, oriented X3, no focal deficits. Absent: pronater drift, facial droop, speech deficit - Skin Skin exam: Present: dry, intact Internal Medicine: Result - Labs CBC & Chem 7: 02/24/19 05:45 02/24/19 05:45 Labs: Urine 02/27/19 Range/Units 12:09 Urine Color Yellow (Yellow) Urine Clarity Clear (Clear) Urine pH 7.0 (5.0-8.0) pH Units Ur Specific [place] 1.020 (1.010-1.025) Urine Protein Negative (Neg-Trace) mg/dL Urine Glucose (UA) Normal (Normal) mg/dL Consult Discharge Plan - Plan Referrals: Mariaa Ozuna MD [Primary Care Provider] -
[2019-02-28] MEDS: *HR* HYDROcodone/Acet 5/325 mg TABLET PO PRN ×2 (15:18→21:06)
[2019-03-01] MEDS: Sennosides/Docusate Sodium TABLET PO SCH ×2 (08:34→21:54)
[2019-03-01] MEDS: (Cyclosporine [Restasis] 1 EACH) OP SCH ×2 (08:34→21:54)
[2019-03-01] MEDS: Aspirin 81 MG TAB.CHEW PO SCH (08:34)
[2019-03-01] MEDS: Fluticasone Propionate Nasal 50 MCG/SPRAY BOTTLE NS SCH (08:34)
[2019-03-01] MEDS: Hydrocortisone 1% OINT 28 GM TUBE TP SCH ×2 (08:36→21:56)
[2019-03-01] MEDS: FluocinoNIDE 0.05% CRM 15 GM TUBE TP SCH ×2 (08:36→21:56)
--- NOTE | 2019-03-01 09:41 | Internal Med Progress Note ---
Date of Encounter: 03/01/19 Time of Encounter: 09:41 - Assessment and plan (1) Anterior communicating artery aneurysm Current Visit: No Status: Inactive Assessment and plan: Clinically stable with no new deficits. (2) Proximal humerus fracture Current Visit: No Status: Inactive Assessment and plan: Continue with sling and swath. Qualifiers: Encounter type: initial encounter Fracture type: closed Fracture morphology: unspecified fracture morphology Laterality: left Qualified Code(s): S42.202A - Unspecified fracture of upper end of left humerus, initial encounter for closed fracture (3) Vertigo Current Visit: No Status: Inactive Assessment and plan: No recent symptoms. (4) Hypertension Current Visit: Yes Status: Chronic Assessment and plan: Marginally controlled. Qualifiers: Hypertension type: essential hypertension Qualified Code(s): I10 - Essential (primary) hypertension (5) GERD (gastroesophageal reflux disease) Current Visit: Yes Status: Acute Assessment and plan: Controlled. Qualifiers: Esophagitis presence: without esophagitis Qualified Code(s): K21.9 - Gastro-esophageal reflux disease without esophagitis (6) Mitral regurgitation Current Visit: Yes Status: Chronic Assessment and plan: Clinically stable. No murmur heard today. Qualifiers: Cardiac valve disease etiology: rheumatic Qualified Code(s): I05.1 - Rheuma tic mitral insufficiency (7) Asthma Current Visit: Yes Status: Acute Assessment and plan: No recent problems. Qualifiers: Asthma severity: mild Asthma persistence: intermittent Asthma complication type: uncomplicated Qualified Code(s): J45.20 - Mild intermittent asthma, uncomplicated (8) Acute right MCA stroke Current Visit: Yes Status: Acute Assessment and plan: Stable with no new signs or symptoms. - Subjective Interval history: Patient is without complaint. She still has left arm pain but is having less. She feels like her leg is strengthening. Therapies continued. Patient has no complaint of chest discomfort, dyspnea, orthopnea, palpitations, nausea or vomiting, constipation or diarrhea, other changes in bowel habits, difficulty with urination, rash or itching, or other new complaints, except as mentioned above. Review of systems is otherwise negative. I discussed management of patient's care with nursing staff. - Constitutional Vitals: Temp Pulse Resp BP Pulse Ox 98.6 F 77 16 151/74 92 03/01/19 06:52 03/01/19 06:52 03/01/19 06:52 03/01/19 06:52 03/01/19 06:52 Exam: Examination: (Except as mentioned above): General: In no apparent distress. Alert and oriented 3. Nondiaphoretic. Head: Atraumatic and normocephalic. Respiratory: No use of accessory muscles. Lungs are clear throughout. Normal airflow. Cardiovascular: Regular rate and rhythm without murmur appreciated. Abdomen: Bowel sounds are normal. No hepatosplenomegaly mass or tenderness appreciated. Morbidly obese and therefore difficult to palpate deeply. Patient is examined upright in chair and this also limits exam. Extremities: No cyanosis clubbing or edema. Skin: Warm and non-diaphoretic with no new lesions noted. Internal Medicine: Result - Labs CBC & Chem 7: 02/24/19 05:45 02/24/19 05:45 Consult Discharge Plan - Plan Referrals: Mariaa Ozuna MD [Primary Care Provider] -
[2019-03-01] MEDS: *HR* HYDROcodone/Acet 5/325 mg TABLET PO PRN (12:34)
[2019-03-01] MEDS: tiZANidine 4 MG TABLET PO PRN (16:04)
[2019-03-01] MEDS: Melatonin 3 MG TABLET PO PRN (21:54)
[2019-03-01] MEDS: Acetaminophen 325 MG TABLET PO PRN (21:55)
[2019-03-02] MEDS: *HR* HYDROcodone/Acet 5/325 mg TABLET PO PRN ×2 (00:44→22:25)
[2019-03-02] MEDS: Hydrocortisone 1% OINT 28 GM TUBE TP SCH ×2 (08:28→21:30)
[2019-03-02] MEDS: Fluticasone Propionate Nasal 50 MCG/SPRAY BOTTLE NS SCH (08:28)
[2019-03-02] MEDS: Aspirin 81 MG TAB.CHEW PO SCH (08:28)
[2019-03-02] MEDS: (Cyclosporine [Restasis] 1 EACH) OP SCH ×2 (08:29→21:30)
[2019-03-02] MEDS: Sennosides/Docusate Sodium TABLET PO SCH ×2 (08:29→21:30)
[2019-03-02] MEDS: FluocinoNIDE 0.05% CRM 15 GM TUBE TP SCH ×2 (08:29→21:30)
--- NOTE | 2019-03-02 13:34 | Internal Med Progress Note ---
Date of Encounter: 03/02/19 Time of Encounter: 13:32 - Assessment and plan (1) Anterior communicating artery aneurysm Current Visit: No Status: Inactive Assessment and plan: No new signs or symptoms. (2) Proximal humerus fracture Current Visit: No Status: Inactive Assessment and plan: Stable in sling. Qualifiers: Encounter type: initial encounter Fracture type: closed Fracture morphology: unspecified fracture morphology Laterality: left Qualified Code(s): S42.202A - Unspecified fracture of upper end of left humerus, initial encounter for closed fracture (3) Vertigo Current Visit: No Status: Inactive Assessment and plan: No current complaints. (4) Hypertension Current Visit: Yes Status: Chronic Assessment and plan: Marginally controlled. Qualifiers: Hypertension type: essential hypertension Qualified Code(s): I10 - Essential (primary) hypertension (5) GERD (gastroesophageal reflux disease) Current Visit: Yes Status: Acute Assessment and plan: No current symptoms. Qualifiers: Esophagitis presence: without esophagitis Qualified Code(s): K21.9 - Gastro-esophageal reflux disease without esophagitis (6) Mitral regurgitation Current Visit: Yes Status: Chronic Assessment and plan: No signs of heart failure. 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 Qualifiers: Asthma severity: mild Asthma persistence: intermittent Asthma complication type: uncomplicated Qualified Code(s): J45.20 - Mild intermittent asthma, uncomplicated (8) Acute right MCA stroke Current Visit: Yes Status: Acute Assessment and plan: Improving without signs or symptoms. (9) Hypokalemia Current Visit: Yes Status: Acute Assessment and plan: To be checked again tomorrow. - Subjective Interval history: Patient is without complaint. She is doing well and enjoying her day off therapy. She has no changes. Bowels are moving in a normal fashion, finally. Patient has no complaint of chest discomfort, dyspnea, orthopnea, palpitations, nausea or vomiting, constipation or diarrhea, other changes in bowel habits, difficulty with urination, rash or itching, or other new complaints, except as mentioned above. Review of systems is otherwise negative. I discussed management of patient's care with nursing staff. - Constitutional Vitals: Temp Pulse Resp BP Pulse Ox 97.6 F 65 18 159/91 95 03/02/19 07:00 03/02/19 07:00 03/02/19 07:00 03/02/19 07:00 03/02/19 07:00 Exam: Examination: (Except as mentioned above): General: In no apparent distress. Alert and oriented 3. Nondiaphoretic. Head: Atraumatic and normocephalic. Respiratory: No use of accessory muscles. Lungs are clear throughout. Normal airflow. Cardiovascular: Regular rate and rhythm without murmur appreciated. Abdomen: Bowel sounds are normal. No hepatosplenomegaly mass or tenderness appreciated. Morbidly obese and therefore difficult to palpate deeply. Patient is examined upright in chair and this also limits exam. Extremities: No cyanosis clubbing or edema. Skin: Warm and non-diaphoretic with no new lesions noted. Internal Medicine: Result - Labs CBC & Chem 7: 02/24/19 05:45 02/24/19 05:45 Consult Discharge Plan - Plan Referrals: Mariaa Ozuna MD [Primary Care Provider] -
[2019-03-02] MEDS: Acetaminophen 325 MG TABLET PO PRN (16:02)
[2019-03-02] MEDS: tiZANidine 4 MG TABLET PO PRN (16:04)
[2019-03-02] MEDS: Melatonin 3 MG TABLET PO PRN (21:30)
[2019-03-03 05:24] LABS: Basophils % 0.4 %; Eosinophils # 0.3 K/mcL (0.0-0.6); Eosinophils % 5.1 %; Hematocrit 35.2 % (35.3-44.9); Immature Granulocytes % 0.3 % (0-4); Lymphocytes # 2.1 K/mcL (0.6-4.6); Lymphocytes % 31.1 %; Mean Corpuscular HGB Conc 34.1 g/dL (31.6-35.5); Mean Corpuscular Hemoglobin 31.4 pg (28.0-33.3); Mean Corpuscular Volume 92.1 fL (83.0-100.0); Mean Platelet Volume 8.7 fL (9.4-12.4); Monocytes # 0.6 K/mcL (0.0-1.3); Monocytes % 8.5 %; Neutrophils # 3.7 K/mcL (1.6-8.9); Platelet Count 387 K/mcL (140-400); Red Blood Count 3.82 M/mcL (3.82-4.97); Red Cell Distribution Width 12.7 % (11.5-14.5); Segmented Neutrophils % 54.6 %; White Blood Count 6.7 K/mcL (4.3-11.1)
[2019-03-03 05:40] LABS: Alanine Aminotransferase 15 Units/L (7-52); Albumin 3.7 g/dL (3.5-5.7); Albumin/Globulin Ratio 1.2 (1.1-2.2); Alkaline Phosphatase 61 Units/L (34-104); Aspartate Amino Transferase 13 Units/L (13-39); BUN/Creatinine Ratio 15 (6-26); Bilirubin,Total 0.4 mg/dL (0.3-1.0); Blood Urea Nitrogen 8 mg/dL (8-23); Calcium 8.9 mg/dL (8.6-10.3); Carbon Dioxide 29 mEq/L (23-29); Chloride 96 mEq/L (98-107); Globulin 3.1 g/dL (2.4-3.5); Glucose 114 mg/dL (70-105); Magnesium 1.7 mg/dL (1.6-2.6); Osmolality,Calculated 275 (280-300); Potassium 3.7 mEq/L (3.5-5.1); Sodium 133 mEq/L (136-145); Total Protein 6.8 g/dL (6.4-8.9); eGFR For African Americans > 60 (> 60); eGFR For Non-African Americans > 60 (> 60)
[2019-03-03] MEDS: Hydrocortisone 1% OINT 28 GM TUBE TP SCH ×2 (08:31→20:49)
[2019-03-03] MEDS: Aspirin 81 MG TAB.CHEW PO SCH (08:31)
[2019-03-03] MEDS: Sennosides/Docusate Sodium TABLET PO SCH ×2 (08:31→20:52)
[2019-03-03] MEDS: (Cyclosporine [Restasis] 1 EACH) OP SCH ×2 (08:32→20:51)
[2019-03-03] MEDS: FluocinoNIDE 0.05% CRM 15 GM TUBE TP SCH ×2 (08:32→20:49)
[2019-03-03] MEDS: Fluticasone Propionate Nasal 50 MCG/SPRAY BOTTLE NS SCH (08:32)
--- NOTE | 2019-03-03 09:53 | Internal Med Progress Note ---
Date of Encounter: 03/03/19 Time of Encounter: 09:51 - Assessment and plan (1) Acute right MCA stroke Current Visit: Yes Status: Acute Assessment and plan: Patient continues with difficulty focusing on objects in her peripheral fox. Slight left hemiparesis with lower left extremity is 4+/5. Exam limited due to left arm in sling. He should states that her vision has improved slightly over the past several days. We will continue with current medications. We will maintain systolic blood pressure less than 160 has a goal. Patient to continue with therapy (2) Hypertension Current Visit: Yes Status: Chronic Assessment and plan: Vital signs have been stable. We will maintain systolic blood pressure less than 160 as a goal. We will continue with current medications Qualifiers: Hypertension type: essential hypertension Qualified Code(s): I10 - Essential (primary) hypertension (3) GERD (gastroesophageal reflux disease) Current Visit: Yes Status: Acute Assessment and plan: No acute issues noted. Patient without complaints. We will continue with current medications Qualifiers: Esophagitis presence: without esophagitis Qualified Code(s): K21.9 - Gastro-esophageal reflux disease without esophagitis (4) Left humeral fracture Current Visit: Yes Status: Acute Assessment and plan: No acute issues. Left arm remains in sling. Pain is normal managed with current medications. Distal CV checks normal. We will continue with current plan of care Qualifiers: Encounter type: sequela Humerus Location: proximal Fracture type: closed Fracture morphology: unspecified fracture morphology Qualified Code(s): S42.202S - Unspecified fracture of upper end of left humerus, sequela (5) Anterior communicating artery aneurysm Current Visit: No Status: Acute Assessment and plan: Patient with incidental finding of ACOM aneurysm area. Evaluated by neurosurgery at previous hospital with conservative treatment recommended. Patient without any complaints of headache. We will maintain systolic blood pressure less than 160. Patient with follow-up scheduled (6) Vaginal burning Current Visit: Yes Status: Acute Assessment and plan: Patient with complaints of vaginal burning. Reports no discharge or fever/chills. Recent urinalysis negative. We will discuss with Dr. Meredith and arrange examination - Time Spent With Patient less than 15 minutes - Subjective Interval history: Patient appears relaxed and currently denies any issues. Patient states she continues to have moderate pain to her left upper arm during range of motion, but states that it is tolerable. Patient continues with sling in place with left arm having nonweightbearing. Patient also states she continues to have some visual blurriness and difficulty with focusing. Complaints of occasional diplopia. States that therapy has been going well for her. Patient states that she was able to ambulate with assistance during therapy at approximately 75 feet Patient has had complaints of a slight vaginal burning. Denies any dysuria or vaginal discharge. Denies any fever/chills. - Constitutional Vitals: Temp Pulse Resp BP Pulse Ox 97.8 F 70 18 167/83 95 03/03/19 07:00 03/03/19 07:00 03/03/19 07:00 03/03/19 07:00 03/03/19 07:00 General appearance: Present: cooperative, A&O X 3, pleasant, no acute distress, obese, answers questions appropriately - Head Head exam: Present: atraumatic, normocephalic - Eye Eye exam: Present: PERRL, conjuntiva pink, sclera anicteric Pupils: Present: PERRL - Neck Neck exam general surgery: Present: supple, trachea midline. Absent: lymphadenopathy - Respiratory Respiratory exam: Present: decreased breath sounds, CTAB. Absent: accessory muscle use, rales, rhonchi, wheezes - Cardiovascular Cardiovascular exam: Present: RRR, +S1, +S2. Absent: diastolic murmur, gallop, rubs, systolic murmur - GI/Abdominal GI/Abdominal exam: Present: normal bowel sounds, soft, no peritoneal signs. Absent: distended, tenderness - Extremities Exam Extremities exam: Present: normal capillary refill, normal inspection, warm, radial pulses palpable and symmetrical. Absent: calf tenderness, cyanotic, pedal edema Additional comments: Left arm remains an immobilizing sling. Left arm is nonweightbearing. Noted ecchymosis to left upper arm. Distal CV checks normal - Neurological Exam Neurological exam: Present: oriented X3. Absent: pronater drift, facial droop, speech deficit Additional comments: Patient continues with complaints of difficulty focusing on objects. States that her vision is blurry to peripheral vision, but that she does have a focal point where she can focus on objects. States occasional diplopia. No other f ocal motor deficits noted - Skin Skin exam: Present: dry, intact Internal Medicine: Result - Labs CBC & Chem 7: 03/03/19 05:20 03/03/19 05:20 Labs: Short CBC 03/03/19 Range/Units 05:20 WBC 6.7 (4.3-11.1) K/mcL Hgb 12.0 (11.5-15.4) g/dL Hct 35.2 L (35.3-44.9) % Plt Count 387 (140-400) K/mcL Neutrophils # 3.7 (1.6-8.9) K/mcL BMP 03/03/19 05:20 Sodium 133 L Potassium 3.7 Chloride 96 L Carbon Dioxide 29 BUN 8 Creatinine 0.54 L Glucose 114 H Calcium 8.9 Liver Function 03/03/19 Range/Units 05:20 Total Bilirubin 0.4 (0.3-1.0) mg/dL AST 13 (13-39) Units/L ALT 15 (7-52) Units/L Alkaline Phosphatase 61 (34-104) Units/L Albumin 3.7 (3.5-5.7) g/dL Consult Discharge Plan - Plan Referrals: Mariaa Ozuna MD [Primary Care Provider] -
[2019-03-03] MEDS: Fluconazole 100 MG TABLET PO SCH (15:07)
[2019-03-03] MEDS: Nystatin POWDER 30 GM BOTTLE TP SCH ×2 (15:08→20:44)
--- NOTE | 2019-03-03 15:25 | Rehab Psychology Progress Note ---
Date of Encounter: 03/03/19 Time of Encounter: 11:00 Subjective - Patient Report Patient Report: More talkative and tearful discussing her mother's last week and the past several weeks - CVA, fall. earful and stated really has not grieved all this. - Symptoms Symptoms: Tearful. Objective - WHODAS Functional Impairment Concentration, Problem-solving, Communication: Mild Social Functioning: None - Comments Functional Status Comments: Aware of the need to process all the changes and impact on her. - Mental Status Mental Status Changes: OX3. Good prolem solving and thinking ahead of potential changes needed for return to home. BArriers are: vision and left arm. Expecting 100% recovery. Assessment and Plan - Diagnosis (1) Adjustment disorder with mixed anxiety and depressed mood - Response to Treatment Response to Treatment: Improved - Prognosis Prognosis: Good - Treatment Plan Treatment Plan Recommendations: Continue Current Plan/Goals Next Session Date: 03/12/19 Procedures - Intervention Interventions: Cognitive/Behavioral Therapy - Modality Modality: Psychotherapy 30 minutes - Participants Therapy Participant: Patient - Session Time Session Start Time: 11:00 Session Stop Time: 11:30
[2019-03-03] MEDS: Melatonin 3 MG TABLET PO PRN (20:43)
[2019-03-03] MEDS: *HR* HYDROcodone/Acet 5/325 mg TABLET PO PRN (20:44)
[2019-03-04] MEDS: tiZANidine 4 MG TABLET PO PRN ×4 (02:30→21:05)
[2019-03-04] MEDS: Acetaminophen 325 MG TABLET PO PRN ×3 (02:30→14:38)
[2019-03-04] MEDS: Fluticasone Propionate Nasal 50 MCG/SPRAY BOTTLE NS SCH (08:10)
[2019-03-04] MEDS: Fluconazole 100 MG TABLET PO SCH (08:14)
[2019-03-04] MEDS: Aspirin 81 MG TAB.CHEW PO SCH (08:14)
[2019-03-04] MEDS: Nystatin POWDER 30 GM BOTTLE TP SCH ×2 (08:15→21:31)
[2019-03-04] MEDS: (Cyclosporine [Restasis] 1 EACH) OP SCH ×2 (08:15→21:31)
[2019-03-04] MEDS: FluocinoNIDE 0.05% CRM 15 GM TUBE TP SCH ×2 (08:15→21:32)
[2019-03-04] MEDS: Hydrocortisone 1% OINT 28 GM TUBE TP SCH ×2 (08:15→21:32)
[2019-03-04] MEDS: Sennosides/Docusate Sodium TABLET PO SCH ×2 (08:18→21:06)
--- NOTE | 2019-03-04 11:14 | Internal Med Progress Note ---
Date of Encounter: 03/04/19 Time of Encounter: 11:13 - Assessment and plan (1) Acute right MCA stroke Current Visit: Yes Status: Acute Assessment and plan: Continue PT, OT and ST. Will follow progress. Follow up with neurology as scheduled. No new neurological deficits at this time. (2) Anterior communicating artery aneurysm Current Visit: No Status: Acute (3) Left humeral fracture Current Visit: Yes Status: Acute Assessment and plan: continue PT and OT. will follow progress. Pain controlled. Continue sling. Follow up with ortho as scheduled. Qualifiers: Encounter type: sequela Humerus Location: proximal Fracture type: closed Fracture morphology: unspecified fracture morphology Qualified Code(s): S42.202S - Unspecified fracture of upper end of left humerus, sequela (4) Hypertension Current Visit: Yes Status: Chronic Assessment and plan: Controlled with current medication. Monitor blood pressure. Qualifiers: Hypertension type: essential hypertension Qualified Code(s): I10 - Essential (primary) hypertension (5) Mitral regurgitation Current Visit: Yes Status: Chronic Assessment and plan: Slight murmur. Stable. Denies shortness of breath. 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 sitting in h, propels self. Left arm in sling. States pain is been controlled with current medication. Maintaining appetite and hydration. Denies fever, chills, nausea vomiting or diarrhea. Denies shortness of breath or chest pain. No new neurological deficits. - Constitutional Vitals: Temp Pulse Resp BP Pulse Ox 98.8 F 66 16 157/84 94 03/04/19 07:00 03/04/19 07:00 03/04/19 07:00 03/04/19 07:00 03/04/19 07:00 General appearance: Present: cooperative, A&O X 3, pleasant, no acute distress, obese, answers questions appropriately - Head Head exam: Present: atraumatic, normocephalic - Eye Eye exam: Present: PERRL, conjuntiva pink, sclera anicteric Pupils: Present: PERRL - Neck Neck exam general surgery: Present: supple, trachea midline. Absent: lymphadenopathy - Respiratory Respiratory exam: Present: CTAB. Absent: accessory muscle use, rales, rhonchi, wheezes - Cardiovascular Cardiovascular exam: Present: RRR, +S1, +S2. Absent: diastolic murmur, gallop, rubs, systolic murmur - GI/Abdominal GI/Abdominal exam: Present: normal bowel sounds, soft, no peritoneal signs. Absent: distended, tenderness - Extremities Exam Extremities exam: Present: warm, radial pulses palpable and symmetrical. Absent: calf tenderness, cyanotic, pedal edema - Neurological Exam Neurological exam: Present: CN II-XII intact, oriented X3, no focal deficits. Absent: pronater drift, facial droop, speech deficit - Skin Skin exam: Present: dry, intact Internal Medicine: Result - Labs CBC & Chem 7: 03/03/19 05:20 03/03/19 05:20 Consult Discharge Plan - Plan Referrals: Mariaa Ozuna MD [Primary Care Provider] -
[2019-03-04] MEDS: *HR* HYDROcodone/Acet 5/325 mg TABLET PO PRN ×2 (14:41→21:05)
[2019-03-04] MEDS: Melatonin 3 MG TABLET PO PRN (21:05)
--- NOTE | 2019-03-05 08:14 | Internal Med Progress Note ---
Date of Encounter: 03/05/19 Time of Encounter: 08:13 - Assessment and plan (1) Anterior communicating artery aneurysm Current Visit: No Status: Inactive Assessment and plan: No new signs or symptoms. (2) Proximal humerus fracture Current Visit: No Status: Inactive Assessment and plan: Distal neurovascular function is intact. This seems to be stable and healing. Qualifiers: Encounter type: initial encounter Fracture type: closed Fracture morphology: unspecified fracture morphology Laterality: left Qualified Code(s): S42.202A - Unspecified fracture of upper end of left humerus, initial encounter for closed fracture (3) Vertigo Current Visit: No Status: Inactive Assessment and plan: No recent complaints. (4) Hypertension Current Visit: Yes Status: Chronic Assessment and plan: As noted above, will add amlodipine and follow. Qualifiers: Hypertension type: essential hypertension Qualified Code(s): I10 - Essential (primary) hypertension (5) GERD (gastroesophageal reflux disease) Current Visit: Yes Status: Acute Assessment and plan: Clinically stable. Qualifiers: Esophagitis presence: without esophagitis Qualified Code(s): K21.9 - Gastro-esophageal reflux disease without esophagitis (6) Mitral regurgitation Current Visit: Yes Status: Chronic Assessment and plan: Seems well compensated. Qualifiers: Cardiac valve disease etiology: rheumatic Qualified Code(s): I05.1 - Rheumatic mitral insufficiency (7) Asthma Current Visit: Yes Status: Acute Assessment and plan: No current complaints or findings. Qualifiers: Asthma severity: mild Asthma persistence: intermittent Asthma complication type: uncomplicated Qualified Code(s): J45.20 - Mild intermittent asthma, uncomplicated (8) Acute right MCA stroke Current Visit: Yes Status: Acute Assessment and plan: Therapies continued and she is participating well. (9) Hypokalemia Current Visit: Yes Status: Acute Assessment and plan: Stable. - Subjective Interval history: Patient is without complaint. She states that her vaginal itching is better. She notes that her bowels are no longer loose, today. We agreed that it was dietary. She is concerned about her marginally elevated blood pressure which sometimes even higher. She knows that she is no longer taking a diuretic and we discussed this. We will begin amlodipine and follow him this seems to put her mind at ease. Patient has no complaint of chest discomfort, dyspnea, orthopnea, palpitations, nausea or vomiting, constipation or diarrhea, other changes in bowel habits, difficulty with urination, rash or itching, or other new complaints, except as mentioned above. Review of systems is otherwise negative. I discussed management of patient's care with nursing staff. - Constitutional Vitals: Temp Pulse Resp BP Pulse Ox 97.8 F 78 17 165/81 93 03/05/19 07:20 03/05/19 07:20 03/05/19 07:20 03/05/19 07:20 03/05/19 07:20 Exam: General: In no apparent distress. Alert and oriented 3. Nondiaphoretic. Head: Atraumatic and normocephalic. Respiratory: No use of accessory muscles. Lungs are clear throughout. Normal airflow. Cardiovascular: Regular rate and rhythm without murmur appreciated. Abdomen: Bowel sounds are normal. No hepatosplenomegaly mass or tenderness appreciated. Morbidly obese and therefore difficult to palpate deeply.Patient is examined upright in chair and this also limits exam. Extremities: No cyanosis clubbing or edema. Skin: Warm and non-diaphoretic with no new lesions noted. Internal Medicine: Result - Labs CBC & Chem 7: 03/03/19 05:20 03/03/19 05:20 Consult Discharge Plan - Plan Referrals: Mariaa Ozuna MD [Primary Care Provider] - 03/11/19 1:45 pm
[2019-03-05] MEDS: Fluticasone Propionate Nasal 50 MCG/SPRAY BOTTLE NS SCH (08:24)
[2019-03-05] MEDS: (Cyclosporine [Restasis] 1 EACH) OP SCH ×2 (08:24→21:49)
[2019-03-05] MEDS: Fluconazole 100 MG TABLET PO SCH (08:25)
[2019-03-05] MEDS: Aspirin 81 MG TAB.CHEW PO SCH (08:25)
[2019-03-05] MEDS: Nystatin POWDER 30 GM BOTTLE TP SCH ×2 (08:26→21:49)
[2019-03-05] MEDS: FluocinoNIDE 0.05% CRM 15 GM TUBE TP SCH ×2 (08:26→21:49)
[2019-03-05] MEDS: Hydrocortisone 1% OINT 28 GM TUBE TP SCH ×2 (08:26→21:50)
[2019-03-05] MEDS: Sennosides/Docusate Sodium TABLET PO SCH ×2 (08:27→21:49)
[2019-03-05] MEDS: Acetaminophen 325 MG TABLET PO PRN ×2 (09:21→17:27)
[2019-03-05] MEDS: tiZANidine 4 MG TABLET PO PRN ×2 (09:21→17:27)
[2019-03-05] MEDS: amLODIPine 5 MG TABLET PO SCH (12:09)
[2019-03-05] MEDS: *HR* HYDROcodone/Acet 5/325 mg TABLET PO PRN ×2 (14:07→23:35)
[2019-03-06] MEDS: Hydrocortisone 1% OINT 28 GM TUBE TP SCH ×2 (07:45→20:21)
[2019-03-06] MEDS: Sennosides/Docusate Sodium TABLET PO SCH ×2 (08:10→20:21)
[2019-03-06] MEDS: Fluticasone Propionate Nasal 50 MCG/SPRAY BOTTLE NS SCH (08:12)
[2019-03-06] MEDS: amLODIPine 5 MG TABLET PO SCH (08:12)
[2019-03-06] MEDS: Fluconazole 100 MG TABLET PO SCH (08:12)
[2019-03-06] MEDS: Aspirin 81 MG TAB.CHEW PO SCH (08:12)
[2019-03-06] MEDS: (Cyclosporine [Restasis] 1 EACH) OP SCH ×2 (08:13→20:21)
[2019-03-06] MEDS: FluocinoNIDE 0.05% CRM 15 GM TUBE TP SCH ×2 (08:53→20:21)
[2019-03-06] MEDS: Nystatin POWDER 30 GM BOTTLE TP SCH ×2 (08:53→20:21)
--- NOTE | 2019-03-06 09:33 | Internal Med Progress Note ---
Date of Encounter: 03/06/19 Time of Encounter: 09:31 - Assessment and plan (1) Acute right MCA stroke Current Visit: Yes Status: Acute Assessment and plan: Patient continues with difficulty focusing on objects in her peripheral fox. Slight left hemiparesis with lower left extremity is 4+/5. Exam limited due to left arm in sling. He should states that her vision has improved slightly over the past several days. We will continue with current medications. We will maintain systolic blood pressure less than 160 has a goal. Patient to continue with therapy Patient with possible discharge tomorrow and we will continue her therapy through outpatient services (2) Hypertension Current Visit: Yes Status: Chronic Assessment and plan: Vital signs have been stable. We will maintain systolic blood pressure less than 160 as a goal and continues to have several readings greater than 160. Patient has when necessary clonidine. Patient started on amlodipine.. We will continue with current medications Qualifiers: Hypertension type: essential hypertension Qualified Code(s): I10 - Essential (primary) hypertension (3) GERD (gastroesophageal reflux disease) Current Visit: Yes Status: Acute Assessment and plan: No acute issues noted. Patient without complaints. We will continue with current medications Qualifiers: Esophagitis presence: without esophagitis Qualified Code(s): K21.9 - Gastro-esophageal reflux disease without esophagitis (4) Left humeral fracture Current Visit: Yes Status: Acute Assessment and plan: No acute issues. Left arm remains in sling. Pain is normal managed with current medications. Distal CV checks normal. We will continue with current plan of care. Patient being prepared for discharge to home tomorrow and states that she has a upcoming orthopedic follow-up. Qualifiers: Encounter type: sequela Humerus Location: proximal Fracture type: closed Fracture morphology: unspecified fracture morphology Qualified Code(s): S42.202S - Unspecified fracture of upper end of left humerus, sequela (5) Anterior communicating artery aneurysm Current Visit: No Status: Acute Assessment and plan: Patient with incidental finding of ACOM aneurysm area. Evaluated by neurosurgery at previous hospital with conservative treatment recommended. Patient without any complaints of headache. We will maintain systolic blood pressure less than 160. Patient with follow-up scheduled - Subjective Interval history: Patient appears relaxed and currently denies any issues. Patient states she continues to have moderate pain to her left upper arm during range of motion, but states that it is tolerable. Patient continues with sling in place with left arm having nonweightbearing. Patient also states she continues to have some visual blurriness and difficulty with focusing. Complaints of occasional diplopia. States that therapy has been going well for her and expresses pleasure about being discharged to home tomorrow. - Constitutional Vitals: Temp Pulse Resp BP Pulse Ox 97.9 F 68 18 157/84 95 03/06/19 07:00 03/06/19 07:00 03/06/19 07:00 03/06/19 07:00 03/06/19 07:00 General appearance: Present: cooperative, A&O X 3, pleasant, no acute distress, obese, answers questions appropriately - Head Head exam: Present: atraumatic, normocephalic - Eye Eye exam: Present: PERRL, conjuntiva pink, sclera anicteric Pupils: Present: PERRL - Neck Neck exam general surgery: Present: supple, trachea midline. Absent: lymphadenopathy - Respiratory Respiratory exam: Present: CTAB. Absent: accessory muscle use, rales, rhonchi, wheezes - Cardiovascular Cardiovascular exam: Present: RRR, +S1, +S2. Absent: diastolic murmur, gallop, rubs, systolic murmur - GI/Abdominal GI/Abdominal exam: Present: normal bowel sounds, soft, no peritoneal signs. Absent: distended, tenderness - Extremities Exam Extremities exam: Present: normal capillary refill, normal inspection, warm, radial pulses palpable and symmetrical. Absent: calf tenderness, cyanotic, pedal edema Additional comments: Left arm remains in a sling with nonweightbearing. Distal CV checks are normal - Neurological Exam Neurological exam: Present: CN II-XII intact, oriented X3. Absent: pronater drift, facial droop, speech deficit Additional comments: Patient states she continues to have some difficulty with focusing on objects peripherally with the right eye. Patient also complains of occasional diplopia. Patient with very slight left lower extremity weakness at 4+/5. Unable to examine left upper extremity due to arm being in sling, but hand grasp appears to be 5/5. Right extremities at 5/5 - Skin Skin exam: Present: dry, intact Internal Medicine: Result - Labs CBC & Chem 7: 03/03/19 05:20 03/03/19 05:20 Consult Discharge Plan - Plan Referrals: Mariaa Ozuna MD [Primary Care Provider] - 03/11/19 1:45 pm
[2019-03-06] MEDS: Acetaminophen 325 MG TABLET PO PRN ×2 (13:10→20:00)
[2019-03-06] MEDS: tiZANidine 4 MG TABLET PO PRN ×2 (13:11→20:01)
[2019-03-06] MEDS: *HR* HYDROcodone/Acet 5/325 mg TABLET PO PRN ×2 (15:31→23:21)
[2019-03-07] MEDS: amLODIPine 5 MG TABLET PO SCH (07:41)
[2019-03-07] MEDS: Aspirin 81 MG TAB.CHEW PO SCH (07:41)
[2019-03-07] MEDS: (Cyclosporine [Restasis] 1 EACH) OP SCH (07:43)
[2019-03-07] MEDS: Sennosides/Docusate Sodium TABLET PO SCH (07:43)
[2019-03-07] MEDS: FluocinoNIDE 0.05% CRM 15 GM TUBE TP SCH (07:43)
[2019-03-07] MEDS: Hydrocortisone 1% OINT 28 GM TUBE TP SCH (07:43)
[2019-03-07] MEDS: Nystatin POWDER 30 GM BOTTLE TP SCH (07:43)
[2019-03-07] MEDS: Fluticasone Propionate Nasal 50 MCG/SPRAY BOTTLE NS SCH (07:44)
[2019-03-07 07:58] VITALS: BP 163/90
--- NOTE | 2019-03-07 11:00 | Physician Discharge Referral ---
Home Health/Hosp Referral Info Transfer to: Home Health Provider in Charge Post Discharge: PCP - Diagnosis (1) Acute right MCA stroke Priority: Primary Status: Acute (2) Anterior communicating artery aneurysm Priority: Secondary Status: Acute (3) Left humeral fracture Priority: Primary Status: Acute (4) Hypertension Priority: Secondary Status: Chronic (5) Mitral regurgitation Priority: Secondary Status: Chronic - Respiratory Orders Smoking Cessation: Smoking cessation has been advised. For more information, call the [place] Tobacco Quit Line at 4-257-KDDK-NOW. - Diet/Nutrition Diet/Nutrition Orders: Mechanical Soft - Activity Activity Orders: Ambulate, Walker - Services Needed Following services are medically necessary services: Nursing, Home Health Aide, Physical Therapy, Occupational Therapy - Transfer Medications Home Medications: Cozaar 100 mg PO DAILY 03/14/15 [History] [place] 5-325 Tablet 1 each PO Q6H PRN 03/14/15 [History] Prilosec 20 mg PO DAILY 03/14/15 [History] [place] 5 mg PO TIDWM 03/14/15 [History] Singulair 10 mg PO HS 03/14/15 [History] Albuterol Sulfate [Albuterol Inhaler] 2 puff IH Q6H PRN 02/20/19 [History] Aspirin 81 mg PO DAILY 02/20/19 [History] Atorvastatin [Lipitor] 20 mg PO HS 02/20/19 [History] Betamethasone/Propylene Glyc [Diprolene 0.05% Ointment] 15 gm TP BID 02/20/19 [History] Cyclosporine [Restasis] 1 each OP Q12H 02/20/19 [History] Fluticasone Propionate Nasal [Flonase] 100 mcg NS DAILY 02/20/19 [History] Sennosides/Docusate Sodium [Senna-Docusate Sodium Tablet] 1 each PO BID 02/20/19 [History] Tizanidine HCl [Zanaflex] 2 mg PO Q6HR 02/20/19 [History] Allergies/Adverse Reactions: Allergy/AdvReac Type Severity Reaction Status Date / Time codeine Allergy Rash Verified 03/14/15 11:06 metoprolol Allergy Rash Verified 03/14/15 11:06 propoxyphene [From Darvon] Allergy Rash Verified 03/14/15 11:06 Certification: Further, I certify that my clinical findings support that this patient is homebound (i.e. absences from home require considerable and taxing effort and are for medical reasons or baptism services or infrequently or short duration when for other reasons) because: Homebound Reason: Patient requires assistance of a person or device to safely leave home, Leaving home requires considerable and taxing effort due to condition Attestation: My signature below is to certify that this patient is under my care and that I, or nurse practitioner, or a physician's certified medical assistant working with me, has a [id number] encounter with this patient.
--- NOTE | 2019-03-07 11:07 | Discharge Summary ---
Date of Encounter: 03/07/19 Time of Encounter: 11:00 - Discharge Diagnosis (1) Acute right MCA stroke Priority: Primary Status: Acute Comments: No new neurological deficits. Continue Lipitor. Follow up with neurologist as scheduled. Continue home health PT, OT, nursing and aid. (2) Anterior communicating artery aneurysm Priority: Secondary Status: Acute Comments: Follow up as scheduled. See PCP within one week. (3) Left humeral fracture Priority: Primary Status: Acute Comments: Pain controlled with current medication. Continue arm in sling. Follow up with ortho as scheduled. Qualifiers: Encounter type: sequela Humerus Location: proximal Fracture type: closed Fracture morphology: unspecified fracture morphology Qualified Code(s): S42.202S - Unspecified fracture of upper end of left humerus, sequela (4) Hypertension Priority: Secondary Status: Chronic Comments: Controlled with current medication. Monitor blood pressure. Qualifiers: Hypertension type: essential hypertension Qualified Code(s): I10 - Essential (primary) hypertension (5) Mitral regurgitation Priority: Secondary Status: Chronic Comments: Continue current medication. 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 Parrish is a 74 year old female discharging to home with home health PT, OT, nursing and aid. Admitted to inpatient rehab unit after having a fall that resulted in a displaced greater tuberosity fracture of the left proximal humerus. She was also have found to have a small right MCA stroke with left facial weakness. She was also found to have a 5 mm anterior communicating artery aneurysm. States pain is controlled with current medication. Abi was admitted to ar dication [facility] for elevated blood pressure. Patient is instructed to follow up with PCP within one week and neurologist and ortho as scheduled. Denies fever, chills, nausea vomiting or diarrhea. Denies shortness of breath or chest pain. Ambulating with nisa Walker. Denies concerns at this time. Discharge discussed with: patient, family, nurse, social work - Time Spent with Patient Total time spent providing and/or coordinating discharge services: Time spent: Less than 30 minutes - Discharge Medications Prescriptions: No Action Singulair 10 mg PO HS [place] 5 mg PO TIDWM Prilosec 20 mg PO DAILY [place] 5-325 Tablet 1 each PO Q6H PRN PRN Reason: Moderate Pain Cozaar 100 mg PO DAILY Albuterol Sulfate [Albuterol Inhaler] 2 puff IH Q6H PRN PRN Reason: Wheezing Atorvastatin [Lipitor] 20 mg PO HS Aspirin 81 mg PO DAILY Fluticasone Propionate Nasal [Flonase] 100 mcg NS DAILY Sennosides/Docusate Sodium [Senna-Docusate Sodium Tablet] 1 each PO BID Cyclosporine [Restasis] 1 each OP Q12H Betamethasone/Propylene Glyc [Diprolene 0.05% Ointment] 15 gm TP BID Tizanidine HCl [Zanaflex] 2 mg PO Q6HR Home Medications: Cozaar 100 mg PO DAILY 03/14/15 [History] [place] 5-325 Tablet 1 each PO Q6H PRN 03/14/15 [History] Prilosec 20 mg PO DAILY 03/14/15 [History] [place] 5 mg PO TIDWM 03/14/15 [History] Singulair 10 mg PO HS 03/14/15 [History] Albuterol Sulfate [Proventil Inhaler] 2 puff IH Q6H PRN 02/20/19 [History] Aspirin 81 mg PO DAILY 02/20/19 [History] Atorvastatin [Lipitor] 20 mg PO HS 02/20/19 [History] Betamethasone/Propylene Glyc [Diprolene 0.05% Ointment] 15 gm TP BID 02/20/19 [History] Cyclosporine [Restasis] 1 each OP Q12H 02/20/19 [History] Fluticasone Propionate Nasal [Flonase] 100 mcg NS DAILY 02/20/19 [History] Sennosides/Docusate Sodium [Senna-Docusate Sodium Tablet] 1 each PO BID 02/20/19 [History] Tizanidine HCl [Zanaflex] 2 mg PO Q6HR 02/20/19 [History] Acetaminophen [Tylenol] 650 mg PO Q4HR PRN tablet 03/07/19 [Rx] Polyethylene Glycol 3350 [MiraLAX] 17 gm PO DAILY PRN powd.pack 03/07/19 [Rx] amLODIPine [Norvasc] 5 mg PO DAILY #30 tablet 03/07/19 [Rx] Allergies/Adverse Reactions: Allergy/AdvReac Type Severity Reaction Status Date / Time codeine Allergy Rash Verified 03/14/15 11:06 metoprolol Allergy Rash Verified 03/14/15 11:06 propoxyphene [From Darvon] Allergy Rash Verified 03/14/15 11:06 Date of admission: 02/20/19 17:15 Primary care physician: Mariaa Ozuna Consults: 02/20/19 17:29 Consult to Occupational Therapy [CONS] Routine Comment: Evaluate, develop and implement POC Reason for Consult: weakness post CVA Does patient have active BEDREST order?: No Is patient medically & hemodynamically stable?: Yes Patient assessed for mobility or mobilized this visit?: No Consult to Physical Therapy [CONS] Routine Comment: Evaluate, develop and implement POC Reason for Consult: weakness post stroke Does patient have active BEDREST order?: No Is patient medically & hemodynamically stable?: Yes Patient assessed for mobility or mobilized this visit?: No Consult to Recreational Therapy [CONS] Routine Comment: Evaluate, develop and implement POC Consult to Hand Plug Shaper [CONS] Routine Reason for SW Consult: post stroke Consult to Speech Therapy [CONS] Routine Comment: Evaluate, develop and implement POC Reason for Consult: speech impairment Call Completed: Yes 02/20/19 19:02 Consult to Hand Plug Shaper [CONS] Routine Reason for SW Consult: Please evaluate for home situation and discharge planning 02/26/19 10:04 Consult to Psychology [CONS] Routine Consulting Provider: Miranda Don Reason for Consult: Acute stroke with adjustment disorder possible Call Completed: No Discharging clinician: Reg Meredith Anticipated date of discharge: 03/07/19 - Constitutional Vitals: Temp Pulse Resp BP Pulse Ox 98.2 F 80 18 163/90 92 03/07/19 07:56 03/07/19 07:56 03/07/19 07:56 03/07/19 07:56 03/07/19 07:56 General appearance: Present: cooperative, A&O X 3, pleasant, no acute distress, obese, answers questions appropriately - Head Head exam: Present: atraumatic, normocephalic - Eye Eye exam: Present: PERRL, conjuntiva pink, sclera anicteric Pupils: Present: PERRL - Neck Neck exam general surgery: Present: supple, trachea midline. Absent: lymphadenopathy - Respiratory Respiratory exam: Present: CTAB. Absent: accessory muscle use, rales, rhonchi, wheezes - Cardiovascular Cardiovascular exam: Present: RRR, +S1, +S2. Absent: diastolic murmur, gallop, rubs, systolic murmur - GI/Abdominal GI/Abdominal exam: Present: normal bowel sounds, soft, no peritoneal signs. Absent: distended, tenderness - Extremities Exam Extremities exam: Present: warm, radial pulses palpable and symmetrical. Absent: calf tenderness, cyanotic, pedal edema - Neurological Exam Neurological exam: Present: CN II-XII intact, oriented X3, no focal deficits. Absent: pronater drift, facial droop, speech deficit - Skin Skin exam: Present: dry, intact - Patient Status Disposition: Home, Self-Care Condition: Good Functional capacity at discharge: uses cane/walker Overall status at discharge: patient is progressing back to baseline - Discharge Instructions Follow Up With: Mariaa Ozuna MD [Primary Care Provider] - 03/11/19 1:45 pm Pawel Cowan MD [Non-Partnered Physician] - 03/26/19 12:30 pm (Stroke clinic followup) Fritz Perry MD [Partnered Physician] - 03/21/19 9:00 am - Diet and Activity Activity: as per physical therapy Diet: advance to your usual diet
[2019-03-07] MEDS: Acetaminophen 325 MG TABLET PO PRN (12:49)
[2019-03-07] MEDS: tiZANidine 4 MG TABLET PO PRN (12:49)
== END 2019-03-07 14:45 | disposition home or self-care (01) | DRG 57 ==
LOC: INPGRE 17:15